=== PATIENT | male | born 1975 | race Asian ===

== ENCOUNTER 2023-09-22 09:22 | Outpatient (CLI) | payer BC | END 2023-09-22 18:22 | disposition home or self-care (01) | LOC: SCA 09:22 | PROVIDERS: ATTEND Internal Medicine Cardiovascular Disease | DX: I08.8 Other rheumatic multiple valve diseases (principal); I77.810 Thoracic aortic ectasia; Z95.2 Presence of prosthetic heart valve | CPT/HCPCS: 93306 ==